=== PATIENT | male | born 1935 | race Caucasian/White ===

== ENCOUNTER 2016-08-09 07:09 | Emergency (ER) | payer OTHER, BC ==
[~2016-08-09] VITALS: Ht 180.3 cm; Wt 75.8 kg
--- NOTE | ~2016-08-09 | EKG ---
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
[~2016-08-09 07:09] MED LIST: ANORO ELLIPTA1 EACH IH; ASPIR 8181 MG PO; CIPRO500 MG PO; ELIQUIS2.5 MG PO; PLAVIX 75 MG TA75 M1 PO; PROTONIX40 M1 PO; QUINAPRIL-HCTZ1 EAC1 PO; SIMVASTATIN20 MG PO; TENORMIN25 MG PO; TENORMIN50 MG PO; VENTOLIN HFA 1818 GM INH
[2016-08-09 07:44] LABS: HEMATOCRIT 44.2 % (42.0-52.0); MCH 30.6 pg (26.0-34.0); MCHC 33.8 g/dL (28.0-37.0); MCV 90.7 fL (80.0-100.0); RBC 4.88 mil/uL (4.50-6.00); WBC 5.2 thou/uL (4.0-11.0)
[2016-08-09 07:57] LABS: APTT 29.2 Seconds (24.5-32.8); INR 1.1; PROTIME 11.2 Seconds (9.3-11.4)
[2016-08-09 08:03] LABS: ANION GAP 9 mmol/L (7-16); BUN 31 mg/dL (7-18); CALCIUM 8.9 mg/dL (8.5-10.1); CHLORIDE 102 mmol/L (98-107); CO2 25 mmol/L (21-32); GLUCOSE 177 mg/dL (74-106); POTASSIUM 4.7 mmol/L (3.5-5.1); SODIUM 136 mmol/L (136-145); TROPONIN-I < 0.04 ng/mL (<0.04-0.07)
[2016-08-09 09:57] LABS: URINE BILIRUBIN NEGATIVE (Negative); URINE BLOOD TRACE (Negative); URINE COLOR YELLOW; URINE GLUCOSE-RANDOM* NEGATIVE (Negative); URINE KETONES NEGATIVE (Negative); URINE LEUKOCYTES-REFLEX NEGATIVE (Negative); URINE PROTEIN (DIPSTICK) NEGATIVE (Negative); URINE SPECIFIC GRAVITY 1.015 (1.003-1.035)
== END 2016-08-09 10:54 | disposition home or self-care (01) ==
LOC: ER 07:09
PROVIDERS: Emergency Medicine
DX: R53.83 Other fatigue (principal); I10 Essential (primary) hypertension; E78.5 Hyperlipidemia, unspecified; F10.99 Alcohol use, unspecified with unspecified alcohol-induced disorder; Z95.5 Presence of coronary angioplasty implant and graft; Z98.890 Other specified postprocedural states; Z87.891 Personal history of nicotine dependence

== ENCOUNTER → 2016-08-15 | Outpatient (CLI) | payer OTHER, BC | LOC: CAT 09:04 | DX: J32.0 Chronic maxillary sinusitis (principal); J32.2 Chronic ethmoidal sinusitis ==

== ENCOUNTER → 2016-10-10 | Outpatient (CLI) | payer OTHER, BC | LOC: MRI 08:03 | PROVIDERS: Otolaryngology Plastic Surgery within the Head & Neck | DX: I67.82 Cerebral ischemia (principal); H74.8X3 Other specified disorders of middle ear and mastoid, bilateral; H90.42 Sensorineural hearing loss, unilateral, left ear, with unrestricted hearing on the contralateral side ==

== ENCOUNTER → 2016-11-02 | Outpatient (CLI) | payer OTHER, BC | LOC: RAD 09:47 | DX: J44.9 Chronic obstructive pulmonary disease, unspecified (principal); H70.93 Unspecified mastoiditis, bilateral; R49.0 Dysphonia; R06.89 Other abnormalities of breathing; R42 Dizziness and giddiness ==

== ENCOUNTER 2016-11-10 12:33 | Inpatient (IN) | payer OTHER, BC ==
[~2016-11-10] VITALS: Ht 180.3 cm; Wt 72.6 kg
--- NOTE | ~2016-11-10 | H ---
[facility] [place] [address] HISTORY AND PHYSICAL Name: JEAN CLAUDE YBARRA Room #: 452-P ADM IN M.R.#: [id number] Admission: 11/10/16 Attend Phys: Sundar Marlow MD Discharge: Date of : 34 Report #: [id number] THIS REPORT FOR: //name// CC: David Marlow PRIMARY CARE PHYSICIAN: David Toure MD REASON FOR ADMISSION: Hypoxia. HISTORY OF PRESENT ILLNESS: The patient is an 81-year-old white male who initially presented to the office for evaluation of dyspnea and weakness. The patient has known COPD. The patient states that he was diagnosed with COPD about 2 years ago. He was in his usual state of health until about 2 months ago when he started developing increasing dyspnea on exertion and weakness. He believes he may have lost some weight. Two months ago, he was also diagnosed with mastoiditis. He has been seen by Dr. Cartwright. Today in the office, his resting saturation on room air is 86%, on 2 liters 91%. Other than weakness and dyspnea, denies any fever, night sweats or chills, chest pain or productive cough. The patient states his his weakness has become severe where it is difficult for him to get out of bed or even do his daily living activities. Spirometry performed today shows severe airflow obstruction, FEV1 measured 1.13 liters of 41% predicted, FVC measured 3 liters or 85% predicted, FEV1/FVC ratio 38%. The patient has smoked about a pack a day for 40+ years, quit 20 years ago. 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 He has been retired 20 years. PAST MEDICAL HISTORY: As mentioned above including atrial fibrillation, is followed by Dr. Calzada, peripheral vascular disease, history of nocturia, hypertension, gastroesophageal reflux disease, hyperlipidemia, and known COPD diagnosed 2 years ago. PAST SURGICAL HISTORY: Noncontributory. FAMILY HISTORY: Unremarkable, both parents are . 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 [facility] [address] [place] [address] HISTORY AND PHYSICAL Name: AMADAJEAN CLAUDE MARY Room #: 452-[facility] IN ..#: [id number] Admission: 11/10/16 Attend Phys: Sundar Marlow MD Discharge: Date of : 34 Report #: [id number] Tobacco history as mentioned above. He drinks occasional alcohol. ALLERGIES: None. CURRENT MEDICATIONS: Include Eliquis 2.5 mg once a day, aspirin 81 mg once a day, Tenormin 50 mg once a day, Omnicef 300 mg 1 twice a day, Combivent 2 puffs q.i.d., Protonix 40 mg once a day, prednisone 10 mg p.r.n., quinapril/hydrochlorothiazide 25/12.5 mg once a day, Zocor 20 mg once a day, and Anoro Ellipta 62.5/25 one puff once a day. REVIEW OF SYSTEMS: As mentioned above, remarkable for weight loss of about 8 pounds, otherwise 10-point system review negative. PHYSICAL EXAMINATION: GENERAL: He is awake, alert, appears quite weak. VITAL SIGNS: Saturation at rest was 86% on room air, on 2 liters 91%, temperature is 98.4 degrees Fahrenheit, blood pressure 116/68 mmHg, pulse is 120, respiratory rate is 20, today's weight is 162.2 pounds. HEENT: Normocephalic, atraumatic. NECK: Supple without lymphadenopathy or thyromegaly. CHEST: Breath sounds are decreased with mildly prolonged expiratory phase. No overt wheezes or rales noted. CARDIOVASCULAR: Normal S1, S2. There is no JVD. There is carotid bruit. Pulses are 2+/4+ bilaterally. ABDOMEN: Soft, nontender, no organomegaly or masses felt. GENITOURINARY: Deferred. RECTAL: Deferred. EXTREMITIES: No cyanosis, clubbing, or edema. IMPRESSION: 1. Acute hypoxic respiratory failure in this 81-year-old white male. Etiology likely due to exacerbation of chronic obstructive pulmonary disease. Early pneumonia cannot be ruled out. 2. Chronic obstructive pulmonary disease, severe impairment with a baseline FEV1 of 1.13 liters of 41% predicted as mentioned above. 3. Generalized weakness and weight loss over the last couple of months. 4. Recent diagnosis of mastoiditis, had been seen by ENT. 5. Atrial fibrillation, on Eliquis. 6. Hypertension, on atenolol and Accuretic. 7. Gastroesophageal reflux disease, on Protonix. 8. Hyperlipidemia, on Zocor. RECOMMENDATION: Given severity of illness and clinical presentation, the patient will benefit from admission. He will be treated for exacerbation of COPD with corticosteroids, bronchodilators, and broad spectrum antibiotics. IV fluids will be given. We will resume his home medications. DVT and GI [facility] [address] [address] HISTORY AND PHYSICAL Name: JEAN CLAUDE YBARRA Room #: 452-P ADM IN M.R.#: [id number] Admission: 11/10/16 Attend Phys: Sundar Marlow MD Discharge: Date of : 34 Report #: [id number] prophylaxis will be resumed. We will also consult Dr. David Toure, his primary care physician. By: 1214 1323 SHAKIRA Angel /nt
[2016-11-10 14:44] LABS: ABG SAMPLE TYPE ARTERIAL; BE(vivo) -3.3 mmol/L (-2 to +3); HCO3 19.8 mmol/L (22.0-26.0); LACTATE 1.61 mmol/L (0.5-2.0); O2(CT) 17.4 mL/dL (15.0-23.0); PCO2 29.7 mmHg (35.0-45.0); PO2 99.2 mmHg (80.0-100.0); STICK SITE R.BRACHIAL; pH 7.441 (7.360-7.450); sO2 97.8 % (92.0-98.0); tCO2 20.7 mmol/L (24.0-30.0)
[2016-11-10 18:10] VITALS: BP 97/55
[2016-11-11 04:19] VITALS: BP 110/70
[2016-11-11 06:04] LABS: HEMATOCRIT 32.3 % (42.0-52.0); HEMOGLOBIN 11.3 gm/dL (14.0-18.0); MCH 32.3 pg (26.0-34.0); MCHC 35.1 g/dL (28.0-37.0); MCV 91.8 fL (80.0-100.0); RBC 3.51 mil/uL (4.50-6.00); RDW 16.7 % (10.5-14.5); WBC 5.5 thou/uL (4.0-11.0)
[2016-11-11 06:17] LABS: ALBUMIN 2.7 g/dL (3.4-5.0); CALCIUM 8.4 mg/dL (8.5-10.1); CREATININE 2.5 mg/dL (0.7-1.3); POTASSIUM 4.9 mmol/L (3.5-5.1); TOTAL BILIRUBIN 0.7 mg/dL (<0.1-1.0); TOTAL PROTEIN 6.1 g/dL (6.4-8.2)
[2016-11-11 06:40] LABS: URINE BILIRUBIN NEGATIVE (Negative); URINE BLOOD 3+ (Negative); URINE COLOR YELLOW; URINE GLUCOSE-RANDOM* TRACE (Negative); URINE KETONES NEGATIVE (Negative); URINE NITRITE NEGATIVE (Negative); URINE PROTEIN (DIPSTICK) NEGATIVE (Negative); URINE SPECIFIC GRAVITY 1.015 (1.003-1.035); URINE UROBILINOGEN 0.2 E.U./dl (0.2-1.0)
[2016-11-11 07:33] LABS: CASTS None Seen /LPF (None Seen); CRYSTALS None Seen /LPF (None Seen); SQUAMOUS 0-3 Few /LPF (0-3); URINE WBC 0-5 Rare /HPF (0-5)
[2016-11-11 07:34] LABS: BACTERIA 1-9 Few /HPF (None Seen)
[2016-11-11 07:44] VITALS: BP 108/67
[2016-11-11 11:30] VITALS: BP 100/61
[2016-11-11 15:20] VITALS: BP 124/63
[2016-11-11 19:15] VITALS: BP 98/59
[2016-11-12 04:15] VITALS: BP 107/50
[2016-11-12 07:37] VITALS: BP 92/52
[2016-11-12 12:00] VITALS: BP 102/49
[2016-11-12 15:11] VITALS: BP 103/52
[2016-11-12 19:06] VITALS: BP 101/41
[2016-11-13 04:45] VITALS: BP 113/59
[2016-11-13 07:19] VITALS: BP 118/54
[2016-11-13 20:11] VITALS: BP 94/50
[2016-11-14 00:32] VITALS: BP 108/65
[2016-11-14 03:34] VITALS: BP 105/58
[2016-11-14] MEDS ORDERED: PREDNISONE 20 M20 M1 PO (08:02)
[2016-11-14 08:15] VITALS: BP 105/58
[2016-11-14 08:17] VITALS: BP 105/58
[2016-11-14 08:43] VITALS: BP 120/67
[2016-11-14 09:29] VITALS: BP 105/58
== END 2016-11-14 09:58 | disposition home health service (06) | DRG 189 ==
LOC: 4W 12:33
PROVIDERS: Internal Medicine Pulmonary Disease
DX: J96.01 Acute respiratory failure with hypoxia (principal); J44.1 Chronic obstructive pulmonary disease with (acute) exacerbation; I48.91 Unspecified atrial fibrillation; I73.9 Peripheral vascular disease, unspecified; I10 Essential (primary) hypertension; K21.9 Gastro-esophageal reflux disease without esophagitis; G72.9 Myopathy, unspecified; E78.5 Hyperlipidemia, unspecified; H70.90 Unspecified mastoiditis, unspecified ear; N28.9 Disorder of kidney and ureter, unspecified; H91.90 Unspecified hearing loss, unspecified ear; Z79.82 Long term (current) use of aspirin; Z79.01 Long term (current) use of anticoagulants; Z79.899 Other long term (current) drug therapy
CPT/HCPCS: 10045

== ENCOUNTER → 2016-11-28 | Outpatient (CLI) | payer OTHER, BC ==
[~2016-11-28] MED LIST changes: +PREDNISONE 20 M20 M1 PO
== END ==
LOC: CAT 09:15
DX: J32.2 Chronic ethmoidal sinusitis (principal)

== ENCOUNTER 2016-12-14 10:28 | Inpatient (IN) | payer OTHER, BC ==
[~2016-12-14] VITALS: Ht 180.3 cm; Wt 79.4 kg
--- NOTE | ~2016-12-14 | HC ---
[facility] [place] [address] CONSULTATION Name: AMADAJEAN CLAUDE HERNANDEZ Room #: 218-P ADM IN M.R.#: [id number] Admission: 12/14/16 Attend Phys: David Toure MD Discharge: Date of : 34 Report #: [id number] THIS REPORT FOR: //name// CC: David Toure DATE OF SERVICE: 12/14/2016 REASON FOR CONSULTATION: Acute on chronic hypoxic respiratory failure. IMPRESSION: 1. Acute on chronic hypoxic respiratory failure. 2. Atrial fibrillation with rapid ventricular response. 3. Pulmonary hypertension. 4. New-onset peripheral edema. 5. Elevated troponin. 6. Hypertension. 7. Gastroesophageal reflux disease. 8. History of mastoiditis. 9. Balance issues. 10. Thrombocytopenia. 11. Anemia, normocytic. 12. Chronic kidney disease. HISTORY OF PRESENT ILLNESS: This is a very pleasant 81-year-old male discharged from hospital on 11/14. Relates he was doing well at that time. About a week ago, legs started swelling. No definite fever or chills, progressive shortness of breath, went to see ENT this morning and sent to the Emergency Room. History of atrial fibrillation with a cardioversion in the past. He denies witnessed apnea. . PAST SURGICAL HISTORY: Includes hernia repair. HOME MEDICATIONS: Include Protonix, aspirin, Eliquis, albuterol, Anoro. FAMILY HISTORY: No pertinent. SOCIAL HISTORY: Rare ETOH. . Positive history of tobacco use, quit smoking 20 years ago per chart, lives with spouse. REVIEW OF SYSTEMS: Positive AFib, peripheral vascular disease, nocturia, hypertension, GERD, hyperlipidemia. FEV1 in office was 1.13; 41% predicted and FVC was 3 liters; 85% predicted. PHYSICAL EXAMINATION: VITAL SIGNS: Temperature 97.6, pulse 74, respirations 24, BP 116/71. EYES: Negative icterus. [facility] [address] [place] [address] CONSULTATION Name: JEAN CLAUDE YBARRA Room #: [address] [place] [address] [place] [facility]#: [id number] Admission: 12/14/16 Attend Phys: David Toure MD Discharge: Date of : 34 Report #: [id number] NECK: Negative JVD. LUNGS: Showed increased end expiratory wheezes bilaterally. HEART: . ABDOMEN: Bowel sounds present. EXTREMITIES: Showed positive edema, no cyanosis. NEUROLOGIC: Moves all extremities. LABORATORY DATA: CT chest from 2009 showed moderate emphysematous changes throughout both lungs, small area of atelectasis, medial segment of the right middle lobe, the bilateral renal artery stents, esophageal coronary calcifications. A pH 7.407, pCO2 of 31, pO2 108, bicarb 19, lactate 6.7, venous Doppler negative. D-dimer 0.26. INR 1.1. ProBNP 9983. BUN 27, creatinine 1.9. Chest x-ray, no acute. White count 10.7, hemoglobin 12.1, MCV 99.6, platelets 132. Echocardiogram last year showed a PA systolic of 60, and ejection fraction 55% to 60%. By: 1541 0105 Joselyn Castaneda MD /nt
--- NOTE | ~2016-12-14 | DEA ---
[facility] [place] [address] SUMMARY Name: JEAN CLAUDE YBARRA Room #: 218-P [facility] IN M.R.#: [id number] Admission: 12/14/16 Attend Phys: David Toure MD Discharge: 12/19/16 Date of : 34 Report #: [id number] THIS REPORT FOR: //name// CC: David Toure DATE OF SERVICE: 12/19/2016 DATE OF : 12/19/2016. ADMITTING DIAGNOSIS: Atrial fibrillation with rapid ventricular response, dyspnea and elevated troponin. DIAGNOSES AT : Cardiac arrhythmia with pulseless electrical activity. HOSPITAL COURSE: The patient was an 81-year-old male who was admitted dyspnea and found to be in AFib with RVR. He also had severe COPD and congestive heart failure, tejzc-xh-hyacgoa systolic. He was admitted and seen in consultation by Cardiology and Pulmonology. We started him on an amiodarone drip. He did have improvement in his overall rate and his dyspnea over the next several days. He was actually scheduled to be discharged to his rehab facility on 12/19/2016. He got up and walked in the home with therapy that day and became acutely short of breath. He went back to bed and was placed on BiPAP and shortly became pulseless and asystolic. Review into the monitor showed that he appeared to have some type of a ventricular tachycardia that went to asystole. Code was called. We attempted for over 30 minutes to resuscitate him, without any success. Echocardiogram was performed during the code, which showed no cardiac activity. Discussion with the family was undertaken and they did not wish to pursue any ongoing resuscitation in light of inability to be resuscitated after 30 minutes. Code was called. The patient on 12/19, as above. By: 0924 0942 David Toure MD /nt
--- NOTE | ~2016-12-14 | 2DMMODE ---
[place] [address] [place] [address] 2 D/M-MODE ECHOCARDIOGRAM Name: AMADAJEAN CLAUDE HERNANDEZ Room #: 218-P ADM IN M.R.#: [id number] Admission: 12/14/16 Attend Phys: David Toure, Discharge: Date of : 33 Date of Service: 12/19/16 1150 Report #: [id number] THIS REPORT FOR: //name// APPROVED REPORT Study performed: 12/19/2016 11:02:22 EXAM: Limited 2D Echocardiogram Patient Location: Bedside Room #: 212 BSA: 1.99 Other Information Study Quality: Adequate Indications Code Blue. Assess for function. Active chest compressions being done. Left Ventricle Left ventricle is grossly normal size. Right Ventricle Right ventricle is dilated. Atria Right atrium is dilated. Pericardium No pericardial effusion. <Conclusion> Left ventricle is grossly normal size. Right ventricle is dilated. Right atrium is dilated. No pericardial effusion. <ELECTRONICALLY SIGNED> By: Michael Calzada MD 12/19/16 1150 1150 Michael Calzada MD /INF
--- NOTE | ~2016-12-14 | EKG ---
[address] [address] ELECTROCARDIOGRAM REPORT Name: JEAN CLAUDE YBARRA Room #: 170-5 ADM IN M.R.#: [id number] Admission: 12/14/16 Attend Phys: David Toure MD Discharge: Date of : 34 Report #: [id number] THIS REPORT FOR: //name// [facility] ED Test Date: 2016-12-14 Test Time: 10:35:46 Pat Name: JEAN CLAUDE YBARRA Department: Room: 170 Gender: M [employer] Attendant: OMAR : 1935 Requested By: Cathy Amador Order Number: [id number] MD: Bertrand Jamil Measurements Intervals [place] Rate: 140 P: MD: QRS: 115 QRSD: 71 T: 195 QT: 288 QTc: 440 Interpretive Statements Atrial fibrillation with rapid V-rate Anterolateral infarct, age indeterminate Compared to ECG 08/09/2016 07:18:26 Myocardial infarct finding now present Right bundle-branch block no longer present Electronically Signed On 12-14-2016 12:18:14 CDT by Bertrand Jamil [email or web address] <ELECTRONICALLY SIGNED> By: Bertrand Jamil MD 12/14/16 1218 1035 1035 Bertrand Jamil MD /EPI
--- NOTE | ~2016-12-14 | 2DMMODE ---
[facility] [address] [place] [address] 2 D/M-MODE ECHOCARDIOGRAM Name: JEAN CLAUDE YBARRA Room #: 218-P ADM IN M.R.#: [id number] Admission: 12/14/16 Attend Phys: David Toure, Discharge: Date of : 34 Date of Service: 12/15/16 1010 Report #: [id number] THIS REPORT FOR: //name// APPROVED REPORT Study performed: 12/15/2016 08:52:58 EXAM: Comprehensive 2D, Doppler, and color-flow Echocardiogram Patient Location: Bedside Room #: 218 BSA: 2.00 BP: 99/65 mmHg Other Information Study Quality: Good Indications Atrial Fibrillation Dyspnea Elevated Troponin Fatigue Hypertension/HDD 2D Dimensions RVDd: 36.84 mm LVEF(%): 40.53 (>50%) IVSd: 11.18 (7-11mm) LVDd: 46.21 mm PWd: 11.25 (7-11mm) LVDs: 37.10 (25-40mm) IVC: 25.00 mm Nelson's LVEF: 40.53 % Volumes Left Atrial Volume (Systole) Single Plane 4CH: 53.57 mL Single Plane 2CH: 62.37 mL LA ESV Index: 33.00 mL/m2 Aortic Valve AoV Peak Regino.: 0.98 m/s AO Peak Gr.: 3.83 mmHg LVOT Max P.86 mmHg LVOT Max V: 0.68 m/s Mitral Valve [facility] [address] [address] 2 D/M-MODE ECHOCARDIOGRAM Name: AMADA,JEAN CLAUDE MARY Room #: 218-P [facility] IN M.R.#: [id number] Admission: 12/14/16 Attend Phys: David Toure, Discharge: Date of : 34 Date of Service: 12/15/16 1010 Report #: [id number] MV Decel. Time: 138.93 ms MV E Max Regino.: 0.99 m/s IVRT: 69.20 ms Pulmonary Valve PV Peak Regino.: 0.89 m/s PV Peak Gr.: 3.22 mmHg Tricuspid Valve TR Peak Regino.: 3.37 m/s RAP Estimate: 10.00 mmHg TR Peak Gr.: 45.35 mmHg Left Ventricle The left ventricle is normal size. Mid to distal anterior, septal, and apical hypokinesis. Distal inferior hypokinesis There is normal left ventricular wall thickness. Left ventricular systolic function is moderately decreased. LVEF is 30-35%. This study is not technically sufficient to allow evaluation of the LV diastolic function due to atrial fibrillation. Right Ventricle Right ventricle is mildly dilated. Right ventricle is hypokinetic. Atria Left atrium is dilated. Right atrium is at the upper limits of normal. Aortic Valve The aortic valve is sclerotic Mild aortic regurgitation. There is no aortic valvular stenosis. Mitral Valve The mitral valve is normal in structure. Mild-moderate mitral regurgitation. No evidence of mitral valve stenosis. Tricuspid Valve The tricuspid valve is normal in structure. There is mild tricuspid regurgitation. The right atrial pressure is estimated at 10 mmHg. PAP is estimated at 55 mmHg. Pulmonic Valve Pulmonic valve is not well visualized. There is no pulmonic valvular regurgitation. Great Vessels The aortic root is normal in size. IVC is dilated and collapses [facility] [address] [place] [address] 2 D/M-MODE ECHOCARDIOGRAM Name: JEAN CLAUDE YBARRA Room #: 218-P ADM IN M.R.#: [id number] Admission: 12/14/16 Attend Phys: David Toure, Discharge: Date of : 34 Date of Service: 12/15/16 1010 Report #: [id number] >50% with inspiration. Pericardium There is no pericardial effusion. <Conclusion> Left ventricular systolic function is moderately decreased. Mid to distal anterior, septal, and apical hypokinesis. Distal inferior hypokinesis LVEF is 30-35%. Both atria are dilated. The aortic valve is sclerotic. Mild aortic regurgitation, no stenosis. The mitral valve is normal in structure. Mild-moderate mitral regurgitation. Pulmonary artery pressure of 55mmHg There is no pericardial effusion. <ELECTRONICALLY SIGNED> By: Toby Carty MD, FACC 12/15/16 1010 1010 1010 Toby Carty MD, FAC /INF
[2016-12-14 10:28] VITALS: BP 133/76
[2016-12-14 10:58] LABS: ABSOLUTE NEUTROPHILS 7.9 thou/uL (1.4-8.2); BASOPHILS 0.4 % (0.0-2.0); EOSINOPHILS 0.4 % (0.0-3.0); HEMATOCRIT 36.7 % (42.0-52.0); HEMOGLOBIN 12.1 gm/dL (14.0-18.0); LYMPHOCYTES 18.2 % (24.0-44.0); MCH 32.8 pg (26.0-34.0); MCHC 32.9 g/dL (28.0-37.0); MCV 99.6 fL (80.0-100.0); MONOCYTES 6.5 % (1.0-8.0); PLATELET COUNT 132 thou/uL (150-400); POLYS 74.5 % (36.0-66.0); RBC 3.69 mil/uL (4.50-6.00); RDW 17.4 % (10.5-14.5); WBC 10.7 thou/uL (4.0-11.0)
[2016-12-14 11:00] LABS: MANUAL DIFF NO
[2016-12-14 11:15] LABS: CALCIUM 9.2 mg/dL (8.5-10.1); CREATININE 1.9 mg/dL (0.7-1.3); POTASSIUM 4.2 mmol/L (3.5-5.1)
[2016-12-14 11:30] LABS: TROPONIN-I 0.51 ng/mL (<0.04-0.07)
[2016-12-14 11:33] LABS: INR 1.1; PROTIME 11.2 Seconds (9.3-11.4)
[2016-12-14 13:04] VITALS: BP 108/66
[2016-12-14 13:40] VITALS: BP 116/71
[2016-12-14 15:19] LABS: ABG SAMPLE TYPE ARTERIAL; BE(vivo) -4.6 mmol/L (-2 to +3); O2Hb 96.2 % (92.0-98.0); PCO2 30.9 mmHg (35.0-45.0); PO2 107.8 mmHg (80.0-100.0); STICK SITE L.RADIAL; pH 7.407 (7.360-7.450)
[2016-12-14 15:40] VITALS: BP 114/75
[2016-12-14 19:10] VITALS: BP 135/87
[2016-12-14 23:58] VITALS: BP 114/79
[2016-12-15 03:33] VITALS: BP 99/65
[2016-12-15 07:10] LABS: ABG SAMPLE TYPE ARTERIAL; BE(vivo) -2.4 mmol/L (-2 to +3); HCO3 20.1 mmol/L (22.0-26.0); LACTATE 2.89 mmol/L (0.5-2.0); O2(CT) 15.6 mL/dL (15.0-23.0); PCO2 27.9 mmHg (35.0-45.0); PO2 108.8 mmHg (80.0-100.0); pH 7.476 (7.360-7.450); sO2 98.3 % (92.0-98.0)
[2016-12-15 07:11] LABS: STICK SITE R.RADIAL
[2016-12-15 08:06] VITALS: BP 117/62
[2016-12-15 11:06] LABS: HEMATOCRIT 30.9 % (42.0-52.0); HEMOGLOBIN 10.4 gm/dL (14.0-18.0); MCH 32.8 pg (26.0-34.0); MCHC 33.7 g/dL (28.0-37.0); MCV 97.2 fL (80.0-100.0); RBC 3.18 mil/uL (4.50-6.00); RDW 16.8 % (10.5-14.5); WBC 6.9 thou/uL (4.0-11.0)
[2016-12-15 11:54] LABS: CALCIUM 8.4 mg/dL (8.5-10.1); CREATININE 1.7 mg/dL (0.7-1.3); POTASSIUM 4.1 mmol/L (3.5-5.1)
[2016-12-15 11:59] VITALS: BP 111/73
[2016-12-15 16:42] VITALS: BP 117/69
[2016-12-15 19:03] VITALS: BP 120/71
[2016-12-15 23:32] VITALS: BP 98/51
[2016-12-16 03:32] VITALS: BP 94/52
[2016-12-16 08:00] VITALS: BP 113/76
[2016-12-16 12:00] VITALS: BP 113/63
[2016-12-16 15:48] VITALS: BP 112/53
[2016-12-16 19:45] VITALS: BP 103/63
[2016-12-17 00:45] VITALS: BP 107/66
[2016-12-17 04:45] VITALS: BP 115/68
[2016-12-17 08:15] VITALS: BP 123/62
[2016-12-17 12:16] VITALS: BP 96/97
[2016-12-17 13:44] LABS: HEMATOCRIT 33.4 % (42.0-52.0); HEMOGLOBIN 11.2 gm/dL (14.0-18.0); MCH 32.9 pg (26.0-34.0); MCHC 33.5 g/dL (28.0-37.0); MCV 98.1 fL (80.0-100.0); RBC 3.4 mil/uL (4.50-6.00); RDW 16.9 % (10.5-14.5); WBC 11.6 thou/uL (4.0-11.0)
[2016-12-17 13:53] LABS: CALCIUM 8.8 mg/dL (8.5-10.1); MAGNESIUM 2.4 mg/dL (1.8-2.4); POTASSIUM 4.5 mmol/L (3.5-5.1)
[2016-12-17 16:34] VITALS: BP 116/64
[2016-12-17 20:19] VITALS: BP 114/66
[2016-12-18 04:13] VITALS: BP 101/48
[2016-12-18 09:15] VITALS: BP 124/73
[2016-12-18 16:10] VITALS: BP 136/81
[2016-12-18 20:04] VITALS: BP 129/80
[2016-12-19 03:01] VITALS: BP 130/73
[2016-12-19 03:42] LABS: HEMATOCRIT 35.2 % (42.0-52.0); HEMOGLOBIN 11.7 gm/dL (14.0-18.0); MCH 32.5 pg (26.0-34.0); MCHC 33.2 g/dL (28.0-37.0); RBC 3.59 mil/uL (4.50-6.00); RDW 17.2 % (10.5-14.5); WBC 14.3 thou/uL (4.0-11.0)
[2016-12-19 03:54] LABS: CALCIUM 8.5 mg/dL (8.5-10.1); CREATININE 2.2 mg/dL (0.7-1.3); POTASSIUM 4.5 mmol/L (3.5-5.1)
[2016-12-19 08:27] VITALS: BP 133/79
== END 2016-12-19 11:07 | DRG 291 ==
LOC: ER 10:28 → 2N 11:57 → EROBS 11:57 → 2N 13:06
PROVIDERS: Emergency Medicine; Family Medicine; Internal Medicine; Internal Medicine Pulmonary Disease; Nurse Practitioner Gerontology
PROC: 5A09357 Assistance with Respiratory Ventilation, Less than 24 Consecutive Hours, Continuous Positive Airway Pressure (ICD-10-PCS; principal; 2016-12-19)
DX: I13.0 Hypertensive heart and chronic kidney disease with heart failure and stage 1 through stage 4 chronic kidney disease, or unspecified chronic kidney disease (principal); I50.33 Acute on chronic diastolic (congestive) heart failure; J96.22 Acute and chronic respiratory failure with hypercapnia; J96.21 Acute and chronic respiratory failure with hypoxia; N17.9 Acute kidney failure, unspecified; J44.1 Chronic obstructive pulmonary disease with (acute) exacerbation; I48.91 Unspecified atrial fibrillation; E78.5 Hyperlipidemia, unspecified; K21.9 Gastro-esophageal reflux disease without esophagitis; I27.20 Pulmonary hypertension, unspecified; I95.9 Hypotension, unspecified; H70.90 Unspecified mastoiditis, unspecified ear; I73.9 Peripheral vascular disease, unspecified; G47.33 Obstructive sleep apnea (adult) (pediatric); D69.6 Thrombocytopenia, unspecified; D64.9 Anemia, unspecified; N18.9 Chronic kidney disease, unspecified; Z79.82 Long term (current) use of aspirin; Z79.899 Other long term (current) drug therapy; Z86.73 Personal history of transient ischemic attack (TIA), and cerebral infarction without residual deficits; Z87.891 Personal history of nicotine dependence; Z95.5 Presence of coronary angioplasty implant and graft; R73.9 Hyperglycemia, unspecified
CPT/HCPCS: 10081